=== PATIENT | female | born 1965 | race Caucasian/White ===

== ENCOUNTER 2018-06-25 18:51 | Emergency (ER) | payer OTHER ==
--- OUTSIDE RECORDS SUMMARY | 2018-06-25 19:49 | XMS REPORT ---
:1965 External Reference #:[id number] Author Organization [employer] Address [address] [facility] [place] [facility] [place] [address] Phone [phone] Care Team Providers Name Role Phone Maria Fernanda Jerome MD Primary Care Physician Unavailable Payers Type Date Identification Numbers Payment Provider Subscriber Commercial Effective: Policy Number: [employer] KelechiMildred Morris 2012 [id number] Group Number: [id number] [address] PayID: [id number] [place] [address] Medigap Part B Expires: 2012 Policy Number: Healthkristofer Slim Cortezlizbeth [id number] Group Number: [id number] [address] PayID: [id number] [place] [address] Problems Date Description Provider Status Onset: 07/09/2011 Hypothyroidism Krista Peres N.P. 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 06/25/ twice a 2017 day for 7 days Levothyroxine 07/09/ Active Tablets 125mcg 90tabs take 1 Krista Sodium 2010 tablet by Varn, N.P. mouth daily Fluconazole 02/01/ Hx Tablets 150mg 2tabs one by Krista 2016 - mouth march Varn, N.P. 02/07/ repeat in 2016 3 days as needed Lidocaine-Prilo 01/24/ Hx Cream 2.5-2.5% 25gm apply a L91.8 Krista mcfarland 2015 - generous Varn, N.P. 01/25/ amount to 2016 affected area 30 minutes before appointme nt. Ciprofloxacin 01/03/ Hx Tablets 250mg 10tabs 1 po bid 599.0 Maria Fernanda HCL 2012 - for 5 Cotton, 08/26/ days M.D. 2013 Ciprofloxacin 12/19/ Hx Tablets 250mg 6tabs one po 599.0 Milena HCL 2011 - bid for 3 Jazz, 12/22/ days M.D., FACP 2011 Omeprazole 11/13/ Hx Capsules 20mg 90caps 1 po qd 530.81 Milena 2010 - DR Schulz, 06/18/ M.D., FACP 2011 Synthroid 08/18/ Hx Tablets 125mcg 90tabs 1 po Milena 2009 - daily Jazz, 07/09/ M.D., FACP 2010 [place] 10/16/ Hx Tablets 5-325mg 30tabs 1-2 PO Deric Pleitez 2007 - Q4H prn Aldo, 11/13/ M.D. 2010 Immunizations CPT Code Status Date Vaccine Reaction Lot # [id number] Given 12/25/2017 Influenza Virus Vaccine, Quadrivalent, Split, Preservative Free 15988 Given 01/30/2017 Tetanus And Diptheria (Td) no immediate reaction [id number] For Adult Use Preservative noted ,,,, [place] Free 82473 Given 11/30/2016 Influenza Virus Vaccine, no immediate reaction [id number] Quadrivalent, Split Virus, noted ... [place] [address] Given 08/29/2015 Influenza Virus Vaccine, Quadrivalent, Split, Preservative Free 16699 Given 12/02/2014 Flu Vaccine Split Virus Preservative Free For Indiv 3Yr Older 81906 Given 09/17/2013 Flu Vaccine Split Virus [id number] Preservative Free For Indiv 3Yr Older Q2037 Given 11/11/2012 Fluvirin Im 3Yrs And Older [id number] 45102 Given 11/13/2011 Influenza Virus 3Yrs & Over [id number] 48598 Given 11/10/2009 Influenza Virus Vaccine, Pandemic Formulation 86577 Given 11/10/2009 Influenza Virus 3Yrs & Over 10462 Given 11/10/2009 Administration Swine Flu Shot 09585 Given 10/30/2008 Influenza Virus 3Yrs & Over 33773 Given 10/30/2008 Influenza Virus 3Yrs & Over 40210 Given 01/15/2007 Tdap - Tetanus/Diptheria/Acellular Pertussis 57640 Given 01/15/2007 Influenza Virus 3Yrs & Over 36136 Given 01/15/2007 Influenza Virus 3Yrs & Over Vital Signs Date Vital Result Comment 06/18/2018 Height 61.75 inches 5'1.75" Weight 172.00 lb Heart Rate 78 /min BP Systolic 130 mmHg BP Diastolic 78 mmHg Body Temperature 97.6 F O2 % BldC Oximetry 98 % BMI (Body Mass Index) 31.7 kg/m2 Waist Circumference 37 01/30/2017 Height 61.5 inches 5'1.50" Weight 173.00 lb Heart Rate 113 /min BP Systolic 140 mmHg BP Diastolic 80 mmHg O2 % BldC Oximetry 97 % BMI (Body Mass Index) 32.2 kg/m2 12/15/2016 Weight 171.00 lb Heart Rate 98 /min BP Systolic Sitting 126 mmHg BP Diastolic Sitting 74 mmHg Respiratory Rate 15 /min Body Temperature 98.9 F O2 % BldC Oximetry 98 % 11/30/2016 Height 61.25 inches 5'1.25" Weight 171.00 lb Heart Rate 83 /min BP Systolic 128 mmHg BP Diastolic 72 mmHg BP Systolic Recheck 130 mmHg BP Diastolic Recheck 82 mmHg O2 % BldC Oximetry 98 % BMI (Body Mass Index) 32.0 kg/m2 02/01/2016 Weight 173.00 lb Heart Rate 99 /min BP Systolic Sitting 132 mmHg BP Diastolic Sitting 76 mmHg O2 % BldC Oximetry 96 % 01/25/2016 Height 61.5 inches 5'1.50" Weight 173.00 lb Heart Rate 98 /min BP Systolic Sitting 124 mmHg BP Diastolic Sitting 76 mmHg Respiratory Rate 15 /min Body Temperature 98.4 F O2 % BldC Oximetry 98 % BMI (Body Mass Index) 32.2 kg/m2 08/26/2014 Height 62 inches 5'2" Weight 164.00 lb Heart Rate 98 /min BP Systolic Sitting 106 mmHg BP Diastolic Sitting 80 mmHg BMI (Body Mass Index) 30.0 kg/m2 01/03/2013 Height 61.5 inches 5'1.50" Weight 164.00 lb Heart Rate 82 /min BP Systolic Sitting 120 mmHg BP Diastolic Sitting 74 mmHg Body Temperature 98.6 F BMI (Body Mass Index) 30.5 kg/m2 06/28/2012 Height 61.5 inches 5'1.50" Weight 161.25 lb Heart Rate 80 /min BP Systolic Sitting 106 mmHg BP Diastolic Sitting 78 mmHg BMI (Body Mass Index) 30.0 kg/m2 06/18/2012 Height 61.5 inches 5'1.50" Weight 161.25 lb Heart Rate 84 /min BP Systolic Sitting 108 mmHg BP Diastolic Sitting 70 mmHg BMI (Body Mass Index) 30.0 kg/m2 12/19/2011 Height 61.75 inches 5'1.75" Weight 164.00 lb Heart Rate 82 /min BP Systolic Sitting 122 mmHg BP Diastolic Sitting 68 mmHg BMI (Body Mass Index) 30.2 kg/m2 11/13/2011 Height 61.75 inches 5'1.75" Weight 166.00 lb Heart Rate 88 /min BP Systolic Sitting 116 mmHg l BP Diastolic Sitting 78 mmHg l BMI (Body Mass Index) 30.6 kg/m2 Results Test Date Test Result H/L Range Note Ua Routine 06/18/2018 Ua Specific [place] 1000 Ua PH 7 Ua Color yellow Ua Appera clear Ua WBC positive Ua Protein negative Ua Glucose negative Ua Ketones negative Ua Bilirubin negative Ua Urobilinogen negative Ua Nitrite positive Ua Occult Blood trace Lipid Profile (Trig/Chol/HDL) 06/14/2018 Triglycerides 115 mg/dL 1 Cholesterol 199 mg/dL 2 HDL Cholesterol 61.5 mg/dL 3 LDL Cholesterol 115 mg/dL 4 Comp Metabolic Panel 06/14/2018 Sodium 137 mmol/L 135-145 Potassium 4.2 mmol/L 3.5-5.0 Chloride 102 mmol/L 101-111 Co2 Carbon Dioxide 28 mmol/L 22-32 Anion Gap 7 mmol/L 2-11 Glucose 94 mg/dL 70-100 Blood Urea Nitrogen 12 mg/dL 6-24 Creatinine 0.78 mg/dL 0.51-0.95 BUN/Creatinine Ratio 15.4 8-20 Calcium 9.3 mg/dL 8.6-10.3 Total Protein 7.3 g/dL 6.4-8.9 Albumin 3.9 g/dL 3.2-5.2 Globulin 3.4 g/dL 2-4 Albumin/Globulin Ratio 1.1 1-3 Total Bilirubin 0.50 mg/dL 0.2-1.0 Alkaline Phosphatase 312 U/L High 34-104 Alt 46 U/L 7-52 Ast 36 U/L 13-39 Egfr Non- 77.0 >60 Egfr 93.1 >60 5 Laboratory test finding 06/14/2018 TSH (Thyroid Stim 1.84 mcIU/mL 0.34- 5.60 6 Horm) Hepatitis Acute Panel 06/14/2018 Hepatitis B Surface Nonreactive Nonreactive Antigen Hepatitis B Core IgM Nonreactive Nonreactive Hepatitis A AB IgM Nonreactive Nonreactive Hepatitis C Antibody Nonreactive Nonreactive Laboratory test finding 01/30/2017 Cytology SEE RESULT BELOW 7 HPV Rna Ww/Reflex Genotype Negative Negative 8 Comp Metabolic Panel 12/13/2016 Sodium 136 mmol/L 133-145 Potassium 4.3 mmol/L 3.5-5.0 Chloride 104 mmol/L 101-111 Co2 Carbon Dioxide 26 mmol/L 22-32 Anion Gap 6 mmol/L 2-11 Glucose 94 mg/dL 70-100 Blood Urea Nitrogen 12 mg/dL 6-24 Creatinine 0.84 mg/dL 0.51-0.95 BUN/Creatinine Ratio 14.3 8-20 Calcium 9.0 mg/dL 8.6-10.3 Total Protein 6.8 g/dL 6.4-8.9 Albumin 4.0 g/dL 3.2-5.2 Globulin 2.8 g/dL 2-4 Albumin/Globulin Ratio 1.4 1-3 Total Bilirubin 0.40 mg/dL 0.2-1.0 Alkaline Phosphatase 147 U/L High 34-104 Alt 25 U/L 7-52 Ast 21 U/L 13-39 Egfr Non- 71.2 >60 Egfr 91.6 >60 9 Lipid Profile (Trig/Chol/HDL) 12/13/2016 Triglycerides 108 mg/dL 10 Cholesterol 188 mg/dL 11 HDL Cholesterol 50.6 mg/dL 12 LDL Cholesterol 116 mg/dL 13 Laboratory test 12/13/2016 TSH (Thyroid Stim Horm) 1.28 mcIU/mL 0.34- 5.60 14 finding Laboratory test 02/01/2016 Surgical Pathology SEE RESULT BELOW 15 finding Lipid Profile 01/24/2016 Triglycerides 80 mg/dL 16 (Trig/Chol/HDL) Cholesterol 201 mg/dL 17 HDL Cholesterol 51.8 mg/dL 18 LDL Cholesterol 133 mg/dL 19 Comp Metabolic Panel 01/24/2016 Sodium 137 mmol/L 133-145 Potassium 3.8 mmol/L 3.5-5.0 Chloride 103 mmol/L 101-111 Co2 Carbon Dioxide 27 mmol/L 22-32 Anion Gap 7 mmol/L 2-11 Glucose 96 mg/dL 70-100 Blood Urea Nitrogen 14 mg/dL 6-24 Creatinine 0.87 mg/dL 0.51-0.95 BUN/Creatinine Ratio 16.1 8-20 Calcium 9.0 mg/dL 8.6-10.3 Total Protein 7.0 g/dL 6.4-8.9 Albumin 4.1 g/dL 3.2-5.2 Globulin 2.9 g/dL 2-4 Albumin/Globulin Ratio 1.4 1-3 Total Bilirubin 0.40 mg/dL 0.2-1.0 Alkaline Phosphatase 128 U/L High 34-104 Alt 23 U/L 7-52 Ast 22 U/L 13-39 Egfr Non- 68.6 >60 Egfr 88.3 >60 20 Laboratory test 01/24/2016 TSH (Thyroid Stim Horm) 1.79 ?IU/mL 0.34-5.60 finding Laboratory test 08/18/2014 TSH (Thyroid 5.60 IU/mL 0.34-5.60 21, 22 finding Stimulating Horm) Lipid Profile 08/18/2014 Triglycerides 94 mg/dL 21, 23 (Trig/Chol/HDL) Cholesterol 198 mg/dL 21, 24 HDL Cholesterol 48.3 mg/dL 21, 25 LDL Cholesterol 131 mg/dL 21, 26 Laboratory test finding 08/18/2014 Glucose 92 mg/dL 70-100 21, 27 Urine Culture And 01/03/2013 Urine Culture (SEE NOTE) 28 Sensitivities Ua Routine 01/03/2013 Ua Specific [place] 1.005 Ua PH 5 Ua Color yellow Ua Appera cloudy Ua WBC small Ua Protein neg Ua Glucose neg Ua Ketones positive Ua Bilirubin neg Ua Urobilinogen neg Ua Nitrite neg Ua Occult Blood non hemo trace Comp Metabolic Panel 07/05/2012 Sodium 137 mmol/L 135-145 Potassium 4.1 mmol/L 3.5-5.0 Chloride 103 mmol/L 101-111 Co2 (Carbon Dioxide) 27.0 mmol/L 22-32 Anion Gap 7.0 mmol/L 2-11 29 Glucose 94 mg/dL 70-100 BUN 10 mg/dL 6-24 Creatinine 0.8 mg/dL 0.50-1.40 One Over Creatinine 1.25 BUN/Creatinine Ratio 12.5 8-20 Calcium 9.4 mg/dL 8.1-9.9 Total Protein 7.1 GM/DL 6.2-8.1 Albumin 4.1 GM/DL 3.6-5.4 Globulin 3.0 GM/DL 2-4 Albumin/Globulin Ratio 1.4 1-3 Bilirubin Total 0.6 mg/dL 0.4-1.5 30 Alkaline Phosphatase 80 U/L 30-110 Alt (SGPT) 21 U/L 14-54 Ast (Sgot) 22 U/L 12-42 eGFR Non- 76.6 > 60 eGFR 98.5 > 60 31 Lipid Profile (Trig/Chol/HDL) 07/05/2012 Triglyceride 113 mg/dL 40-200 Cholesterol 221 mg/dL High Less Than 200 32 High Density Lipoprotein 51 mg/dL 40-60 33 Cholesterol/HDL Ratio 4.33 AVERAGE 1-4.44 Low Density Lipoprotein 147 mg/dL High Less Than 100 34 Laboratory test 07/05/2012 TSH 0.63 MIU/ML 0.34-5.60 finding Laboratory test 06/28/2012 Surgical Pathology 35 finding <SEE NOTE> Laboratory test 06/18/2012 Cytology 36 finding <SEE NOTE> Laboratory test 06/03/2012 TSH 3.94 MIU/ML 0.34-5.60 finding Thyroxine Free 1.12 ng/dL 0.61-1.24 Surgical Pathology 01/10/2012 Surgical Pathology <SEE 37 NOTE> Clotest 01/10/2012 M <SEE 38 NOTE> Urine Culture & 12/19/2011 M <SEE 39 Sensitivi NOTE> Comp Metabolic 11/28/2011 Sodium 136 mmol/L 135-145 Panel Potassium 4.1 mmol/L 3.5-5.0 Chloride 103 mmol/L 101-111 Co2 (Carbon Dioxide) 27.0 mmol/L 22-32 Anion Gap 6.0 mmol/L 2-11 40 Glucose 90 mg/dL 70-100 BUN 9 mg/dL 6-24 Creatinine 0.8 mg/dL 0.50-1.40 One Over Creatinine 1.25 BUN/Creatinine Ratio 11.3 8-20 Calcium 9.2 mg/dL 8.1-9.9 Total Protein 6.5 GM/DL 6.2-8.1 Albumin 4.1 GM/DL 3.6-5.4 Globulin 2.4 GM/DL 2-4 Albumin/Globulin Ratio 1.7 1-3 Bilirubin Total 0.5 mg/dL 0.4-1.5 41 Alkaline Phosphatase 90 U/L 30-110 Alt (SGPT) 31 U/L 14-54 Ast (Sgot) 26 U/L 12-42 eGFR Non- 76.9 > 60 eGFR 98.9 > 60 42 Lipid Profile (Trig/Chol/HDL) 11/28/2011 Triglyceride 114 mg/dL 40-200 Cholesterol 215 mg/dL High Less Than 200 43 High Density Lipoprotein 49 mg/dL 40-60 44 Cholesterol/HDL Ratio 4.39 AVERAGE 1-4.44 Low Density Lipoprotein 143 mg/dL High Less Than 100 45 Laboratory test finding 11/28/2011 TSH 6.08 MIU/ML High 0.34-5.60 CBC Auto Diff 11/28/2011 White Blood Count 5.6 CUMM 4.8-10.8 Red Cell Count 4.49 CUMM 4.2-5.4 Hemoglobin 13.5 g/dL 12.0-16.0 Hematocrit 40 % 35-47 Mean Corpuscular Volume 90 um3 79-97 Mean Corpuscular Hemoglob 30 pg 27-31 Mean Corpuscular HGB Cone 34 g/dL 32-36 Redcell Distribution WDTH 14 % 10.5-15 Platelet Count 290 CUMM 150-450 Mean Platelet Volume 7.9 um3 7.4-10.4 Gran % 55.5 % 38-83 Lymph % 31.6 % 25-47 Mononuclear % 9.3 % High 1-9 Eosinophil % 3.0 % 0-6 Basophil % 0.6 % 0-2 Abs Lymphs 1.8 1.0-4.8 Abs Mononuclear 0.5 0-0.8 Absolute Neutrophil Count 3.1 1.5-7.7 Abs Eosinophils 0.2 0-0.6 Abs Basophils 0 0-0.2 Comp Metabolic Panel 09/17/2008 Sodium 138 mmol/L 135-145 46 Potassium 4.0 mmol/L 3.5-5.0 46 Chloride 106 mmol/L 101-111 46 Co2 (Carbon Dioxide) 27.0 mmol/L 22-32 46 Anion Gap 5.0 mmol/L 2-11 46, 47 Glucose 96 mg/dL 70-100 46, 48 BUN 15 mg/dL 6-24 46 Creatinine 0.9 mg/dL 0.5-1.4 46 One Over Creatinine 1.11 46 BUN/Creatinine Ratio 16.7 8-20 46 Calcium 9.1 mg/dL 8.1-9.9 46, 49 Total Protein 6.9 GM/DL 6.2-8.1 46 Albumin 4.0 GM/DL 3.6-5.4 46 Globulin 2.9 GM/DL 2-4 46 Albumin/Globulin Ratio 1.4 1-3 46 Bilirubin Total 0.5 mg/dL 0.4-1.5 46 Alkaline Phosphatase 53 U/L 30-110 46 Alt (SGPT) 17 U/L 14-54 46 Ast (Sgot) 18 U/L 12-42 46 Lipid Profile (Trig/Chol/HDL) 09/17/2008 Triglyceride 190 mg/dL 40-200 46 Cholesterol 194 mg/dL Less Than 200 46, 50 High Density Lipoprotein 36 mg/dL Low 40-60 46, 51 Cholesterol/HDL Ratio 5.39 AVERAGE High 1-4.44 46 Low Density Lipoprotein 120 mg/dL High Less Than 100 46, 52 Laboratory test 09/17/2008 TSH 2.00 MIU/ML 0.34-5.60 46 finding Surgical Pathology 09/26/2007 Surgical Pathology 53 <SEE NOTE> CBC W/ Electronic Diff 09/24/2007 White Blood Count 6.8 CUMM 4.8-10.8 54 Abs Basophils 0 0-0.2 54 Abs Eosinophils 0 0-0.6 54 Absolute Neutrophil Count 4.6 1.5-7.7 54 Abs Lymphs 1.7 1.0-4.8 54 Abs Mononuclear 0.4 0-0.8 54 Basophil % 0.5 % 0-2 54 Hematocrit 42 % 35-47 54 Hemoglobin 14.3 g/dL 12.0-16.0 54 Eosinophil % 0.4 % 0-6 54 Gran % 68.0 % 38-83 54 Lymph % 24.5 % 20-45 54 Mean Corpuscular HGB Cone 34 g/dL 32-36 54 Mean Corpuscular Hemoglob 31 pg 27-31 54 Mean Corpuscular Volume 90 um3 79-97 54 Mean Platelet Volume 7.8 um3 7.4-10.4 54 Mononuclear % 6.6 % 1-9 54 Platelet Count 321 CUMM 150-450 54 Red Cell Count 4.66 CUMM 4.2-5.4 54 Redcell Distribution WDTH 14 % 10.5-15 54 Basic Metabolic Panel 09/24/2007 One Over Creatinine 1.00 54 Anion Gap 8.0 mmol/L 2-11 54, 55 BUN 14 mg/dL 6-24 54 Calcium 9.3 mg/dL 8.7-10.2 54 Chloride 103 mmol/L 101-111 54 Co2 (Carbon Dioxide) 28.0 mmol/L 22-32 54 Glucose 102 mg/dL 70-105 54 Potassium 3.9 mmol/L 3.5-5.0 54 Sodium 139 mmol/L 135-145 54 BUN/Creatinine Ratio 14.0 8-20 54 Creatinine 1.0 mg/dL 0.5-1.4 54 Type And Screen 09/24/2007 Patient Blood Type A POSITIVE Antibody Screen NEGATIVE Specimen Discard Date 10/08/07 56 CBC With Manual Diff 01/19/2007 White Blood Count 4.8 CUMM 4.8-10.8 Absolute Neutrophil Count 3.1 Atypical Lymph 3 % 0-6 Anisocytosis SLIGHT Band Neutrophil 1 % 0-8 Hematocrit 40 % 35-47 Hemoglobin 13.8 g/dL 12.0-16.0 Lymphocyte 29 % 5-47 Mean Corpuscular HGB Cone 35 g/dL 32-36 Mean Corpuscular Hemoglob 30 pg 27-31 Mean Corpuscular Volume 88 um3 79-97 Monocyte 3 % 0-13 Mean Platelet Volume 8.3 um3 7.4-10.4 Platelet Count 284 CUMM 150-450 Polysegmented Neutrophil 64 % 38-83 Red Cell Count 4.56 CUMM 4.2-5.4 Redcell Distribution WDTH 15 % 10.5-15 Comp Metabolic Panel 01/19/2007 One Over Creatinine 1.25 Anion Gap 6.0 mmol/L 2-11 57 Albumin/Globulin Ratio 1.6 1-3 Albumin 4.1 GM/DL 3.6-5.4 Alkaline Phosphatase 64 U/L 30-110 Alt (SGPT) 19 U/L 14-54 Ast (Sgot) 21 U/L 12-42 BUN 10 mg/dL 6-24 Calcium 8.9 mg/dL 8.7-10.2 Chloride 102 mmol/L 101-111 Co2 (Carbon Dioxide) 27.0 mmol/L 22-32 Globulin 2.6 GM/DL 2-4 Glucose 94 mg/dL 70-105 Potassium 3.9 mmol/L 3.5-5.0 Sodium 135 mmol/L 135-145 Bilirubin Total 0.7 mg/dL 0.4-1.5 Total Protein 6.7 GM/DL 6.2-8.1 BUN/Creatinine Ratio 12.5 8-20 Creatinine 0.8 mg/dL 0.5-1.4 Lipid Profile 01/19/2007 Cholesterol/HDL Ratio 5.13 AVERAGE High 1-4.44 (Trig/Chol/HDL) Cholesterol 195 mg/dL Less Than 200 58 Triglyceride 84 mg/dL 40-200 High Density Lipoprotein 38 mg/dL Low 40-60 59 Low Density Lipoprotein 140 mg/dL High Less Than 100 60 Laboratory test finding 01/19/2007 TSH 0.30 MIU/ML Low 0.34-5.60 1 Desirable: <150 Borderline High: 150-199 High: 200-499 Very High: >500 2 Desirable: <200 Borderline High: 200-239 High: >239 3 Low: <40 Desirable: 40-60 High: >60 4 Desirable: <100 Near Optimal: 100-129 Borderline High: 130-159 High: 160-189 Very High: >189 5 Because ethnic data is not always readily available, this report includes an eGFR for both -Americans and non- Americans. The National Kidney Disease Education Program (NKDEP) does not endorse the use of the MDRD equation for patients that are not between the ages of 18 and 70, are , have extremes of body size, muscle mass, or nutritional status, or are non- or non-. According to the National Kidney Foundation, irrespective of diagnosis, the stage of the disease is based on the level of kidney function: Stage Description GFR(mL/min/1.73 m(2)) 1 Kidney damage with normal or decreased GFR 90 2 Kidney damage with mild decrease in GFR 60-89 3 Moderate decrease in GFR 30-59 4 Severe decrease in GFR 15-29 5 Kidney failure <15 (or dialysis) 6 FASTING 10 HOUR 7 SEE RESULT BELOW Name: AUDRA MORRIS : [address]: Krista Peres NP Acct: [id number] Unit: [id number] AGE: 51 Location: [facility] Re01/30/17 SEX: F Status: REG REF SPEC: [id number] [place]: 01/30/17-[address]: Krista Peres NP REQ: [id number] RECD: 01/30/17019 STATUS: SOUT _ ORDERED: IMAGE ANALYSIS, HPV/Thin Prep, HPV 16/18 GENE COMMENTS: [id number] FINAL DIAGNOSIS Negative for Intraepithelial lesion or Malignancy Fungal organisms morphologically consistent with Nora species A. Ectocervical/Endocervical Specimen Adequacy: Satisfactory of evaluation Transformation zone component identified Patient Information: HPV: High risk HPV RNA testing regardless of pap results. HPV 16/18 Genotype Reflex Actual Specimen Date: 01/30/17 Last Menstrual Date: 01/30/17 Spec Date if unknown: unknown ?: N Post Menopausal?: N Hysterectomy?: N Previous Abnormal Pap Smears?:N Date Time Test Result Flag (u) Normal Range 01/30/17 1035 HPV RNA RFLX GE Negative Negative The high-risk HPV types detected by the assay include: 16, 18, 31, 33, 35, 39, 45, 51, 52, 56, 58, 59, 66, and 68. Signed (signature on file) SUSHILA Estrada (ASCP) 01/31 1303 This Pap test was evaluated with the assistance of the [employer] Test Imaging System. Due to cytologic findings at the corrugator operator microscope, comprehensive manual rescreening by a Director Of Planning may be required. The Pap Smear is a screening test designed to aid in the detection of premalignant and malignant conditions of the uterine cervix. It is not a diagnostic procedure and should not be used as the sole means of detecting cervical cancer. Both false- positive and false- negative reports do occur. Depending on your risk status, a Pap smear should be obtained and evaluated every 1-3 years. END OF REPORT * ML=Testing performed at Main Lab DEPARTMENT OF PATHOLOGY, [address] [place] [address] RUN DATE: 01/31/17 [facility] LAB LIVE PAGE 1 Patient: CHRISAUDRA MUÑOZ Edson [id number] (Continued) Mark Puckett M.D. Director [facility] # [id number] The high-risk HPV types detected by the assay include: 16, 18, 31, 33, 35, 39, 45, 51, 52, 56, 58, 59, 66, and 68. 9 Because ethnic data is not always readily available, this report includes an eGFR for both -Americans and non- Americans. The National Kidney Disease Education Program (NKDEP) does not endorse the use of the MDRD equation for patients that are not between the ages of 18 and 70, are , have extremes of body size, muscle mass, or nutritional status, or are non- or non-. According to the National Kidney Foundation, irrespective of diagnosis, the stage of the disease is based on the level of kidney function: Stage Description GFR(mL/min/1.73 m(2)) 1 Kidney damage with normal or decreased GFR 90 2 Kidney damage with mild decrease in GFR 60-89 3 Moderate decrease in GFR 30-59 4 Severe decrease in GFR 15-29 5 Kidney failure <15 (or dialysis) 10 Desirable <150 Borderline high 150-199 High 200-499 Very High >500 11 Desirable <200 Borderline high 200-239 High >239 12 Low <40 Desirable: 40-60 High: >60 13 Desirable: <100 mg/dL Near Optimal: 100-129 mg/dL Borderline High: 130-159 mg/dL High: 160-189 mg/dL Very High: >189 mg/dL 14 FASTING 10 HOUR 15 SEE RESULT BELOW Name: AUDRA MORRIS Edson : [address]: Krista Peres NP Acct: [id number] Unit: [id number] AGE: 50 Location: [facility] Re02/01/16 SEX: F Status: REG REF SPEC: [id number] [place]: 02/01/16-14[address] [facility] DR: Krista Peres NP REQ: [id number] RECD: 02/01/16 STATUS: SOUT _ ORDERED: LEVEL IV FINAL DIAGNOSIS Skin, back, excision: -- Benign dermal nevus, neurotized. PRE-OPERATIVE DIAGNOSIS Irritated skin tag GROSS DESCRIPTION The specimen is received in formalin with no source identified and a requisition labeled, Skin Lesion of Back, and consists of a 0.5 x 0.5 x 0.3 cm gamboa wrinkled polypoid skin fragment, which is inked, bisected and submitted entirely in one cassette. Signed (signature on file) Mark Puckett MD [id number] END OF REPORT * ML=Testing performed at Main Lab DEPARTMENT OF PATHOLOGY, [address] [place] [address] Mark Puckett M.D. Director [facility] # [id number] 16 Desirable <150 Borderline high 150-199 High 200-499 Very High >500 17 Desirable <200 Borderline high 200-239 High >239 18 Low <40 Desirable: 40-60 High: >60 19 Desirable: <100 mg/dL Near Optimal: 100-129 mg/dL Borderline High: 130-159 mg/dL High: 160-189 mg/dL Very High: >189 mg/dL 20 Because ethnic data is not always readily available, this report includes an eGFR for both -Americans and non- Americans. The National Kidney Disease Education Program (NKDEP) does not endorse the use of the MDRD equation for patients that are not between the ages of 18 and 70, are , have extremes of body size, muscle mass, or nutritional status, or are non- or non-. According to the National Kidney Foundation, irrespective of diagnosis, the stage of the disease is based on the level of kidney function: Stage Description GFR(mL/min/1.73 m(2)) 1 Kidney damage with normal or decreased GFR 90 2 Kidney damage with mild decrease in GFR 60-89 3 Moderate decrease in GFR 30-59 4 Severe decrease in GFR 15-29 5 Kidney failure <15 (or dialysis) 21 PT IS FASTING 22 PT IS FASTING 23 Desirable <150 Borderline high 150-199 High 200-499 Very High >500 24 Desirable <200 Borderline high 200-239 High >239 25 Low <40 Desirable: 40-60 High: >60 26 Desirable <100 Near Optimal 100-129 Borderline high 130-159 High 160-189 Very High >189 27 PT IS FASTING 28 RUN DATE: 01/05/13 [facility] LAB LIVE PAGE 1 RUN TIME: [address] [place] [id number] Specimen Inquiry Name: AUDRA MORRIS : [address]: Maria Fernanda Jerome MD Acct: [id number] Unit: [id number] AGE: 47 Location: [facility] Re01/03/13 SEX: F Status: REG REF SPEC: [id number] [place]: 01/03/13-[address]: Maria Fernanda Jerome MD REQ: [id number] RECD: 01/03/13 STATUS: COMP _ SOURCE: URINE SPDESC: ORDERED: Urine Culture QUERIES: Medent Number [id number] Procedure Result Verified Site Urine Culture Final 01/05/13- 0843 ML Organism 1 ESCHERICHIA COLI [place] Count >100,000 (Many) CFU/ML 1. ESCHERICHIA COLI M.I.C. RX --------- ------ Amikacin <=2 S Ampicillin 4 S * Ampicillin/Sublactam 4 S Cefazolin <=4 S Cefepime <=1 S Cefoxitin <=4 S Ceftazidime <=1 S Ceftriaxone <=1 S Ciprofloxacin <=0.25 S Gentamicin <=1 S Imipenem <=1 S Levofloxacin <=0.12 S Nitrofurantoin <=16 S Piperacillin <=4 S Tigecycline <=0.5 S Trimethoprim/Sulfamethoxazole <=20 S * These antibiotics are not available in the [facility] Formulary Contact the Microbiology Department for any additional antibiotic reporting. END OF REPORT * ML=Testing performed at Main Lab DEPARTMENT OF PATHOLOGY, [address] [place] [address] Mark Puckett M.D. Director [facility] Permit #[id number] 29 Anion gap measurement may be of limited value in the presence of any alkalosis, especially in a combined acid base disorder. . 30 A metabolite of Naproxen, O-desmethylnaproxen, has been shown to interfere with the Jendrassik-Jaxon method for measuring total bilirubin. Samples from patients who have taken Naproxen have shown spurious elevation in total bilirubin levels. 31 Because ethnic data is not always readily available, this report includes an eGFR for both -Americans and non- Americans. The National Kidney Disease Education Program (NKDEP) does not endorse the use of the MDRD equation for patients that are not between the ages of 18 and 70, are , have extremes of body size, muscle mass, or nutritional status, or are non- or non-. According to the National Kidney Foundation, irrespective of diagnosis, the stage of the disease is based on the level of kidney function: Stage Description GFR(mL/min/1.73 m(2)) 1 Kidney damage with normal or decreased GFR 90 2 Kidney damage with mild decrease in GFR 60-89 3 Moderate decrease in GFR 30-59 4 Severe decrease in GFR 15-29 5 Kidney failure <15 (or dialysis) 32 CHOLESTEROL INTERPRETATION: Desirable: Less than 200 MG/DL Borderline-High Risk: 200-239 MG/DL High-Risk: 240 MG/DL and over 33 HDL INTERPRETATION: Undesirable: High Risk: Less than 40 MG/DL Desirable: Low Risk: Greater than 60 MG/DL 34 LDL INTERPRETATION: Low Risk Optimal Level: LDL Less than 100 MG/DL Near or Above Optimal: LDL 100-129 MG/DL Borderline High Risk: LDL 130-159 MG/DL High Risk: LDL 160-189 MG/DL Very High Risk: LDL Greater than 189 MG/DL 35 ---- RUN DATE: 07/02/12 [facility] NMI LIVE PAGE 1 RUN TIME: 151 Specimen Inquiry RUN USER: INTERFACE -- Name: AUDRA MORRIS Edson Status: REG REF Re06/28/12 Age/Sex: 47/F Unit#: [id number] Location: [facility] : 63 -- Specimen: [id number] SOUT Spec Date:06/28/12 [facility] Dr: Krista Peres [facility] Spec Type: SURGICAL P Received:07/01/12-1252 Copies to: CYTOLOGY SPECIMEN ENDOMETRIAL BIOPSY HISTORY PRE-OP DIAGNOSIS: Irregular menstrual bleeding. GROSS DESCRIPTION The specimen is received in formalin labelled Audra Morris, Endometrial Biopsy, and consists of multiple gamboa-pink, soft tissue fragments measuring 1.7 x 1.0 x 0.3 cm. in aggregate. Submitted entirely, one cassette. DIAGNOSIS Uterus, endometrium, pipelle biopsy: A. Secretory endometrium. B. No evidence of hyperplasia or neoplasia. Signed Electronically by: MARK PUCKETT MD 07/02/12 1512 -- -- DEPARTMENT OF PATHOLOGY, [address] [place] [address] [facility] Permit #[id number] Irena Cox M.D. Lining Strap Closer Dir netta -- 36 ---- RUN DATE: 06/19/12 [facility] NMI LIVE PAGE 1 RUN TIME: 1609 Specimen Inquiry RUN USER: INTERFACE -- Name: AUDRA MORRIS Status: REG REF Re06/18/12 Age/Sex: 47/F Unit#: [id number] Location: [facility] : 63 -- Specimen: [id number] [facility] Spec Date:06/18/12-[address]: Krista Peres [facility] Spec Type: CYTOLOGY Received:06/19/12 Copies to: SOURCE ECTOCERVICAL/ENDOCERVICAL Thin Prep with Reflex HPV Test PATIENT INFORMATION ACTUAL COLLECTION DATE: 06/18/12 ? No POST MENOPAUSAL? No HYSTERECTOMY? No PREVIOUS ABNORMAL PAP SMEARS No LAST MENSTRUAL PERIOD: 06/10/12 ADEQUACY OF SPECIMEN Satisfactory for evaluation * Transformation zone component identified * DIAGNOSIS NEGATIVE FOR INTRAEPITHELIAL LESION OR MALIGNANCY * Fungal organisms morphologically consistent with Nora species * This Pap test was evaluated with the assistance of the ThinPrep Pap Test Imaging System. The Pap Smear is a screening test designed to aid in the detection of premalign ant and malignant conditions of the uterine cervix. It is not a diagnostic procedure a nd should not be used as the sole means of detecting cervical cancer. Both false- positiv e and false-negative reports do occur. Depending on your risk status, a Pap smear david uld be obtained and evaluated every one to three years. Initial evaluation performed by Edson ALVARENGA(ASCP) 06/19/12 Final Interpretation electronically signed by: Edson ALVARENGA(ASCP) 06/19/12 1608 -- DEPARTMENT OF PATHOLOGY, [address] [place] [address] [facility] Permit #[id number] Irena Cox M.D. Lining Strap Closer Dir netta -- 37 ---- RUN DATE: 01/12/12 [facility] NMI LIVE PAGE 1 RUN TIME: 1154 Specimen Inquiry RUN USER: INTERFACE -- Name: AUDRA MORRIS Status: REG REF Re01/10/12 Age/Sex: 46/F Unit#: [id number] Location: [facility]. : 63 -- Specimen: [id number] SOUT Spec Date: 01/10/[address]: Mauricio corona MD Spec Type: SURGICAL P Received: 01/11/12 Copies to: Krista Peres [facility] SPECIMEN 1) DUODENAL BIOPSY 2) GASTRIC POLYP HISTORY POST-OP DIAGNOSIS: Stomach - small fundal polyp, hiatal hernia. CLINICAL INFORMATION: Abdominal pain, dysphagia. GROSS DESCRIPTION 1) The specimen is received in formalin labelled Audra Morris, Biopsy Duodenum, and consists of three fragments of yellow tissue measuring in aggregate 0.6 x 0.6 x 0.3 cm. Submitted entirely, one cassette labelled 1. 2) The specimen is received in formalin labelled Audra Morris, Gastric Polyp, and consists of two fragments of yellow tissue each measuring 0.2 x 0.1 x 0.1 cm. Submitted entirely, one cassette labelled 2. DIAGNOSIS 1) Duodenum, biopsy: Duodenal mucosa with preserved villous architecture and no significant pathologic changes. 2) Stomach, biopsy: Fundic gland type polyp. Signed Electronically by: JOEY MICHAELS 01/12/12 1154 -- -- DEPARTMENT OF PATHOLOGY, [address] [place] [address] [facility] Permit #[id number] Irena Cox M.D. Lining Strap Closer Dir netta -- 38 RUN DATE: 01/11/12 [facility] NMI LIVE PAGE 1 RUN TIME: 837 Specimen Inquiry RUN USER: INTERFACE Name: CHRISTONIAUDRA Acclashaun#: [id number] Status: REG REF Re01/10/12 Age/Sex: 46/F Unit#: [id number] Location: END : 63 SPEC #: [id number] [place]: 01/10/12 STATUS: [place] REQ #: [id number] RECD: 01/10/[address] [facility] [address]: Jeremy YOON,Mauricio Blackwood SOURCE: CLOTEST ENTR: 01/10/[address]: Krista Mayes [facility]: ORDERED: CLOTEST Procedure Result Verified Site > CLOTEST Final 01/11/12837 ML CLOTEST NEGATIVE ML - [facility] Permit #[id number] [address] [place] [address] DEPARTMENT OF PATHOLOGY, [address] [place] [address] [address] [facility] Permit #[id number] Irena Cox M.D. Slot Ambassador 39 RUN DATE: 12/21/11 [facility] NMI LIVE PAGE 1 RUN TIME: 1105 Specimen Inquiry RUN USER: INTERFACE Name: AUDRA MORRIS Status: REG REF Re12/19/11 Age/Sex: 46/F Unit#: [id number] Location: [facility] : 63 SPEC #: [id number] [place]: 12/19/11 STATUS: COMP REQ #: [id number] RECD: 12/19/[address]: Ja MARREROPKrista SOURCE: URINE ENTR: 12/19/[address]: [facility]: ORDERED: URINE C S QUERIES: MEDENT REQUISITION # [id number] SPECIMEN DESCRIPTION: URINE, RANDOM ACT WKST: UR 12/21/11 #1 Procedure Result Verified Site > URINE CULTURE SENSITIVI Final 12/21/11- 1105 ML Organism 1 STAPH LUGDUNENSIS COLONY COUNT >100,000 ORGANISMS/ML (MANY) 1. STAPH LUGDUNENSIS RX M.I.C. ------ --------- RIFAMPIN S <=0.5 LEVOFLOXACIN S 0.25 TETRACYCLINE S <=1 CIPROFLOXACIN S <=0.5 GENTAMICIN S <=0.5 TIGECYCLINE S <=0.12 OXACILLIN S 0.5 NITROFURANTOIN S <=16 VANCOMYCIN S 1 +AMPICILLIN/SUBLACTAM S +IMIPENEM S +CEFAZOLIN S +These results are deduced according to CLSI guidelines as they are related to tested antimicrobials with almost identical spectrum of activity. *These antibiotics are not available in the [facility] Formulary. Contact the Microbiology Department for any additional antibiotic reporting. [facility] Permit #[id number] [address] [place] [address] DEPARTMENT OF PATHOLOGY, [address] [place] [address] [facility] Permit #[id number] Mark Puckett M.D. Director Joey Michaels M.D. Slot Ambassador 40 Anion gap measurement may be of limited value in the presence of any alkalosis, especially in a combined acid base disorder. . 41 A metabolite of Naproxen, O-desmethylnaproxen, has been shown to interfere with the Jendrassik-[place] method for measuring total bilirubin. Samples from patients who have taken Naproxen have shown spurious elevation in total bilirubin levels. 42 Because ethnic data is not always readily available, this report includes an eGFR for both -Americans and non- Americans. The National Kidney Disease Education Program (NKDEP) does not endorse the use of the MDRD equation for patients that are not between the ages of 18 and 70, are , have extremes of body size, muscle mass, or nutritional status, or are non- or non-. According to the National Kidney Foundation, irrespective of diagnosis, the stage of the disease is based on the level of kidney function: Stage Description GFR(mL/min/1.73 m(2)) 1 Kidney damage with normal or decreased GFR 90 2 Kidney damage with mild decrease in GFR 60-89 3 Moderate decrease in GFR 30-59 4 Severe decrease in GFR 15-29 5 Kidney failure <15 (or dialysis) 43 CHOLESTEROL INTERPRETATION: Desirable: Less than 200 MG/DL Borderline-High Risk: 200-239 MG/DL High-Risk: 240 MG/DL and over 44 HDL INTERPRETATION: Undesirable: High Risk: Less than 40 MG/DL Desirable: Low Risk: Greater than 60 MG/DL 45 LDL INTERPRETATION: Low Risk Optimal Level: LDL Less than 100 MG/DL Near or Above Optimal: LDL 100-129 MG/DL Borderline High Risk: LDL 130-159 MG/DL High Risk: LDL 160-189 MG/DL Very High Risk: LDL Greater than 189 MG/DL 46 FASTING 47 Anion gap measurement may be of limited value in the presence of any alkalosis, especially in a combined acid base disorder. . 48 Note change in reference range as of 07/16/08. The change was based on recommendations from the [place] [employer]. 49 Please note change in reference range effective 08 . 50 CHOLESTEROL INTERPRETATION: Desirable: Less than 200 MG/DL Borderline-High Risk: 200-239 MG/DL High-Risk: 240 MG/DL and over 51 HDL INTERPRETATION: Undesirable: High Risk: Less than 40 MG/DL Desirable: Low Risk: Greater than 60 MG/DL 52 LDL INTERPRETATION: Low Risk Optimal Level: LDL Less than 100 MG/DL Near or Above Optimal: LDL 100-129 MG/DL Borderline High Risk: LDL 130-159 MG/DL High Risk: LDL 160-189 MG/DL Very High Risk: LDL Greater than 189 MG/DL 53 ---- RUN DATE: 09/27/07 [facility] NMI LIVE PAGE 1 RUN TIME: 1555 Specimen Inquiry RUN USER: INTERFACE [id number] AUDRA MORRIS 42/F <[place] [facility] ([id number]) MELVIN Carlson MD, Debbi Pleitez -- Specimen: [id number] SOUT Spec Date: 09/26/07 [facility] Dr: Deric gallego MD Spec Type: SURGICAL P Received: 09/26/07-1242 Copies to: SPECIMEN DISC L5-S1 HISTORY PRE-OP DIAGNOSIS: Right L5-S1 sciatica due to herniated disc L5-S1 GROSS DESCRIPTION The specimen is received in formalin labelled Audra Morris, Disc L5-S1, and consists of multiple, gamboa-pink, fibrous, soft tissue fragments measuring 3.7 x 2.4 x 1.0 cm. in aggregate. Nursing Student section, one cassette. DIAGNOSIS Intervertebral disc, L5-S1, discectomy - Intervertebral disc material. Signed Electronically by: MARK PUCKETT MD 09/27/07 1554 -- -- DEPARTMENT OF PATHOLOGY, [address] [place] [address] [facility] Permit #[id number] Mark Puckett M.D. Director of Laboratories Ben Simon II, M.D . Pathologist -- 54 [facility] 09/26/07 55 Anion gap measurement may be of limited value in the presence of any alkalosis, especially in a combined acid base disorder. . 56 PREADMISSION TESTING SAMPLES FOR BLOOD BANK WILL BE HELD FOR 14 DAYS FROM THE DATE OF COLLECTION *IF* THE FOLLOWING CRITERIA ARE MET: 1) THE PATIENT HAS *NOT* BEEN IN THE LAST 3 MONTHS. 2) THE PATIENT HAS *NOT* BEEN TRANSFUSED IN THE LAST 3 MONTHS. PREADMISSION TESTING SAMPLES WILL *NOT* BE HELD FOR 14 DAYS FROM PATIENTS WHO IN THE LAST 3 MONTHS: 1) HAVE BEEN 2) HAVE BEEN TRANSFUSED THESE PATIENTS *MUST* BE COLLECTED WITHIN 3 DAYS OF THE SURGERY DATE. 57 Anion gap measurement may be of limited value in the presence of any alkalosis, especially in a combined acid base disorder. . 58 Classification: Desirable . 59 Classification: Low . 60 CALCULATED LDL APPROXIMATES THE VALUE OF A DIRECT LDL MEASUREMENT. Classification: Borderline High . Procedures Date CPT Code Description Status 04/01/2018 Mammogram Completed 01/30/2017 11591 Admin & Interp Of Health Risk Assessment w/ Patient Completed 01/12/2017 33257 Stress Test Completed 01/12/2017 54024 Stress Test Completed 12/12/2016 21919 ECHO Transthoracic, Real-Time 2D With Doppler And Color Completed Flow 11/30/2016 35124 EKG Tracing & Interpretation Completed 02/01/2016 89067 Excise Benign Lesion 2.1-3CM Trunk/Arm/Leg Completed 02/25/2015 Mammogram Completed 10/02/2013 Mammogram Completed 06/28/2012 04942 Endometrial Sampling W Or W/O Endocervical BX W Or W/O Completed Cerv Dilat 06/26/2012 Mammogram Completed 01/26/2012 Colonoscopy Completed 12/13/2011 40919 ECHO Transthoracic, Real-Time 2D With Doppler And Color Completed Flow 11/29/2011 53760 Holter Monitor Review (24 hr)dr review & interp only Completed 11/28/2011 05592 Holter Monitor Completed 11/13/2011 12693 EKG Tracing & Interpretation Completed 04/27/2011 Mammogram Completed 04/18/2010 Mammogram Completed 09/26/2007 52085 Laminotomy W/Decomp NRV RT,One Interspace,Lumbar Completed Encounters Type Date Location Provider CPT E/M Dx Office Visit 01/30/2017 [facility] Krista Peres, N.P. 54048 Z00.00 9:20a - [place] Z12.31 Z12.4 Z23 Office Visit 12/15/2016 9:40a [facility] Krista Peres, N.P. 86748 R07.9 - [place] R03.0 Office Visit 11/30/2016 8:40a [facility] Krista Peres, N.P. 63415 R07.89 - [place] R03.0 Z23 R94.31 Office Visit 01/25/2016 9:20a [facility] Krista Peres, N.P. 81762 Z00.00 - [place] Z12.31 E03.9 E78.0 L91.8 Office Visit 08/26/2014 9:20a [facility] Krista Peres, N.P. 71514 V70.0 - [place] V76.10 244.9 272.4 Office Visit 01/03/2013 11:20a [facility] Maria Fernanda Justus 40869 599.0 - [place] M.D. Office Visit 06/18/2012 10:00a [facility] Krsita Peres, N.P. 53132 V70.0 - [place] V72.31 V76.10 244.9 256.4 626.6 Office Visit 12/19/2011 10:00a [facility] Krista Peres, N.P. 34634 530.81 - [place] 573.9 599.0 Office Visit 12/13/2011 1:15p [facility] ECHO 95624 786.59 Schedule Office Visit 11/13/2011 11:40a DO Not Use Krista Peres, N.P. 03958 786.59 [facility] 530.81 v04.81 v72.60 Office Visit 03/30/2010 1:30p DO Not Use [facility] Krista Peres, 61800 V70.0 N.P. Office Visit 10/30/2008 3:45p DO Not Use [facility] Milena Schulz M.D., 86420 244.9 FACP 780.79 V04.81 Office Visit 10/16/2008 9:00a [facility] Deric Carlson, 05908 724.3 Of Deedee Osborn Office Visit 09/21/2007 9:00a [facility]surgery Services Deric Carlson, 07266 724.3 Of Deedee Osborn 722.10 Office Visit 09/11/2007 2:15p DO Not Use Daphnie Casas, 85232 724.4 [facility] Kaelyn.Nazario Office Visit 01/15/2007 2:15p DO Not Use Daphnie Casas, 18642 V70.0 [facility] 244.9 724.2 235.2 272.0 V04.81 V06.1 Plan of Care Future Appointment(s):06/19/2019 9:00 am - Krista Peres N.P. at [facility] - Ztrtybtuo24/24/2018 - Krista Peres N.P.Z00.00 Encntr for general adult medical exam w/o abnormal findingsComments:For your routine health maintenance: I encourage you to continue with regular exercise.You could improve your nutrition by boosting your intake of fruit and vegetables and cutting back on sweets and snacks.Your colonoscopy is up to date. You had this in 2011. You will need this repeated in 2021. Your Tetanus immunization is up to date. You received this in 2016. It is good for 10 years unless you have a major injury, then it is good for 5 years. You had a pap smear in 2016. It was normal and your screening for HPV was negative. You will need a repeat pap smear in 2019. You just had a mammogram in March and will need this repeated next March.I have given you a health care proxy and advanced directive forms to fill out and return to our office. These are important for us to have on file so we may knowwhat your wishes are if you are unable to express them yourself.E03.9 Hypothyroidism, unspecifiedComments:Your recent blood work showed your thyroid levels were in normal range. Continue with your current dose of medication.E78.00 Pure hypercholesterolemia, unspecifiedComments:Your recent labs to check your cholesterol looked good. I advise you to follow a low cholesterol diet.R94.5 Abnormal results of liver function studiesComments:To further evaluate your elevate liver enzyme I am referring you to a specialist, Dr Werner.I have ordered an ultrasound of your liver. I will contact you with your results.Referral:Aman Werner MD, AcqbbhzneehdlkmpD64.0 Urinary tract infection, site not specifiedNew Medication:Bactrim DS 800-160 mgComments:For your urinary tract infection:I sent a prescription to the pharmacy for Bactrim DS, take one by mouth twice daily for 7 days.Avoid bladder irritants: coffee, tea, bev, alcohol, and spicy foods.I am sending a specimen for culture, the office will call if you need a different antibiotic. If symptoms persist call the office.
[2018-06-25 19:59] VITALS: BP 149/96
--- NOTE | 2018-06-25 20:30 | UC ---
Lower Extremity/Ankle HPI - HPI Summary HPI Summary: 53 yo female with right great toe pain no injury has been working in sock feet on concrete floor on [employer] for UTI - History of Current Complaint Chief Complaint: UCLowerExtremity Stated Complaint: FOOT TOE PAIN Time Seen by Provider: 06/25/18 20:10 Hx Obtained From: Patient Hx Last Menstrual Period: 06/17/18 Onset/Duration: Sudden Onset, Lasting Hours Severity Initially: Mild Severity Currently: Moderate Pain Intensity: 7 Pain Scale Used: 0-10 Numeric Aggravating Factor(s): Standing, Ambulation Alleviating Factor(s): Rest Able to Bear Weight: Yes - Allergies/Home Medications Allergies/Adverse Reactions: Allergies Allergy/AdvReac Type Severity Reaction Status Date / Time No Known Allergies Allergy Verified 06/25/18 19:50 PMH/Surg Hx/FS Hx/Imm Hx Previously Healthy: Yes - Surgical History Surgical History: Yes Surgery Procedure, Year, and Place: herniated disc-back surgery, c section - Social History Alcohol Use: None Substance Use Type: None Smoking Status (MU): Never Smoked Tobacco Have You Smoked in the Last Year: No Review of Systems Constitutional: Negative Skin: Negative Eyes: Negative ENT: Negative Respiratory: Negative Cardiovascular: Negative Gastrointestinal: Negative Genitourinary: Negative Motor: Negative Neurovascular: Negative Musculoskeletal: Arthralgia Neurological: Negative Psychological: Negative Is Patient Immunocompromised?: No All Other Systems Reviewed And Are Negative: Yes Physical Exam Triage Information Reviewed: Yes Appearance: Well-Appearing, No Pain Distress, Well-Nourished Vital Signs: Initial Vital Signs Temp 98 F 06/25/18 19:52 Pulse 75 06/25/18 19:52 Resp 16 06/25/18 19:52 BP 149/96 06/25/18 19:52 Pulse Ox 100 06/25/18 19:52 Eyes: Positive: Conjunctiva Clear ENT: Positive: Hearing grossly normal. Negative: Nasal congestion, Nasal drainage, Trismus, Muffled voice, Hoarse voice Neck: Positive: Supple, Nontender Respiratory: Positive: Lungs clear, Normal breath sounds, No respiratory distress, No accessory muscle use Cardiovascular: Positive: RRR, No Murmur Musculoskeletal: Positive: ROM Limited @ - right great toe, Edema @ - plantar aspect 1st MCP, Other: - antalgic gait Psychological Exam: Normal Skin Exam: Normal Diagnostics - Radiology No standard instances Xray Interpretation: No Acute Changes Radiology Interpretation Completed By: ED Physician Lower Extremity Course/Dx - Differential Dx/Diagnosis Provider Diagnoses: right great toe pain of uncertain cause Discharge - Sign-Out/Discharge Documenting (check all that apply): Patient Departure - Discharge Plan Condition: Stable Disposition: HOME Prescriptions: Cephalexin CAP* [Keflex CAP*] 500 mg PO BID #4 cap Patient Education Materials: Swollen Joint (ED) Referrals: Mitali Velasco MD [Medical Doctor] - As Soon As Possible [facility] [Outside] - As Soon As Possible Additional Instructions: stop cipro take keflex rest elevate advil 3 pills 4x day as needed I am unsure of the cause of your great toe pain doubt gout but that is a possibility ? overuse injury vs metarsalgia vs seamoid bone inflamation vs tenodintitis vs other - Billing Disposition and Condition Condition: STABLE Disposition: Home
[2018-06-25] MEDS ORDERED: Cephalexin CAP* 500 MG PO ONE (21:03)
[2018-06-25] MEDS ORDERED: Ibuprofen TAB* 600 MG PO ONE (21:04)
--- NOTE | 2018-06-26 07:39 | RAD ---
HISTORY: pain, right first great toe, and region of sesamoid COMPARISONS: None VIEWS: 3, Frontal, lateral, and oblique views of the first digit of the right foot FINDINGS: BONE DENSITY: Normal. BONES: There is no displaced fracture. JOINTS: There is no arthropathy. ALIGNMENT: There is no dislocation. SOFT TISSUES: Unremarkable. OTHER FINDINGS: None. IMPRESSION: NO ACUTE OSSEOUS INJURY. IF SYMPTOMS PERSIST, RECOMMEND REPEAT IMAGING. R0
== END 2018-06-25 21:28 | disposition home or self-care (01) ==
LOC: UCEAST 18:51
DX: M79.674 Pain in right toe(s) (principal)
CPT/HCPCS: 99213; A9270-GY; G0463

== ENCOUNTER 2019-05-04 14:03 | Emergency (ER) | payer OTHER ==
--- NOTE | 2019-05-04 14:12 | UC ---
Palpitation/Dysrhythmia HP - HPI Summary HPI Summary: 54 yo with history of primary biliary cholangitis, with a sense of irregular heart rhythm beginning this morning. She has had similar experience in the past , with past stress testing with Dr. Quintanilla, several years ago. Has been aware of this off and on all day. No associated chest pain, sweating, dizzines sor pre-syncopy. Drining more caffeinated coffee recently (6 cups per day), played tennis in the heat yesterday, hx of hypothyroidism. Has been losing weight with intent since dx of PBC, being treated by Dr. Mendoza at [facility]. - History of Current Complaint Stated Complaint: HEART BEATING IRREGUAR Time Seen by Provider: 05/04/19 14:05 Hx Obtained From: Patient Hx Last Menstrual Period: 06/17/18 Onset/Duration: Sudden Onset, Lasting Hours - about 6 Timing: Intermittent Episodes Lasting: Severity Initially: Mild Severity Currently: Mild Character: Irregular Aggravating Factor(s): Caffeine Alleviating Factor(s): Exertion - less aware of this while mowing the lawn Associated Signs & Symptoms: Positive: Negative - Risk Factors Cardiac: Negative Pulmonary Embolism: Negative Atrial Fibrillation: Negative - Allergy/Home Medications Allergies/Adverse Reactions: Allergies Allergy/AdvReac Type Severity Reaction Status Date / Time ciprofloxacin AdvReac Intermediate Joint Pain Uncoded 05/04/19 14:16 Home Medications: Home Medications Levothyroxine TAB* [Synthroid 125 MCG TAB*] 125 mcg PO DAILY 05/04/19 [History Confirmed 05/04/19] Ursodiol CAP* [Actigall CAP 300 MG*] 300 mg PO TID 05/04/19 [History Confirmed 05/04/19] PMH/Surg Hx/FS Hx/Imm Hx Previously Healthy: Yes Endocrine History: Hypothyroidism GI/ History: Other - primary biliary cholangitis. - Surgical History Surgical History: Yes Surgery Procedure, Year, and Place: herniated disc-back surgery, c section - Family History Known Family History: Positive: Cardiac Disease - father [place] age 73, Other - mother of lung cancer. - Social History Occupation: Employed Full-time Lives: With Family Alcohol Use: Rare Substance Use Type: None Smoking Status (MU): Never Smoked Tobacco Have You Smoked in the Last Year: No Review of Systems All Other Systems Reviewed And Are Negative: Yes Skin: Positive: Negative Eyes: Positive: Other - hx of ocular migraine. ENT: Positive: Negative Respiratory: Negative: Shortness Of Breath, Cough Cardiovascular: Positive: Palpitations. Negative: Chest Pain Gastrointestinal: Negative: Vomiting, Nausea Genitourinary: Positive: Negative Motor: Positive: Negative Neurovascular: Positive: Negative Musculoskeletal: Positive: Negative Neurological: Positive: Negative Psychological: Positive: Other - aware of feeling worried and a bit stressed, tearful. Had additional mammo views this week, made her feel worried. Physical Exam Triage Information Reviewed: Yes Appearance: Well-Appearing, No Pain Distress Eyes: Positive: Conjunctiva Clear ENT: Positive: Pharynx normal, TMs normal Neck: Positive: Supple, Nontender, No Lymphadenopathy Respiratory: Positive: Lungs clear, Normal breath sounds Cardiovascular Exam: Other - regularly irregular. Cardiovascular: Positive: No Murmur, Pulses Normal Abdomen Description: Positive: Nontender, No Organomegaly, Soft Musculoskeletal Exam: Normal Neurological: Positive: Alert, Muscle Tone Normal Psychological Exam: Other - mildly tearful Skin Exam: Normal Diagnostics - EKG Cardiac Rate: Other Rate - first degree av block Cardiac Rhythm: Sinus: Normal Ectopy: PACs ST Segment: Normal Palpitations Course/Dx - Course Course Of Treatment: sinus arrhythmia. Labs drawn, decrease caffeine. follow up with Irene Peres for further work up. - Differential Dx/Diagnosis Differential Diagnosis/HQI/PQRI: Coronary Artery Disease, Hypokalemia Provider Diagnosis: Premature atrial complex Discharge - Sign-Out/Discharge Documenting (check all that apply): Patient Departure All imaging exams completed and their final reports reviewed: No Studies - Discharge Plan Condition: Stable Disposition: HOME Patient Education Materials: Premature Atrial Contractions (ED) Referrals: Krista Peres NP [Primary Care Provider] - Additional Instructions: Lab work has been done in order to look for possible metabolic changes which could promote a heart arrhytmia, including electrolytes and thyroid check. Please see Irene Soto within 2 or 3 days for re-assessment, and decision about whether re-assessment by Dr. Quintanilla is needed. Please decrease caffeine. - Billing Disposition and Condition Condition: STABLE Disposition: Home
[2019-05-04 14:15] VITALS: BP 165/85
[2019-05-05 11:00] LABS: ABS Eosinophils 0.1 10^3/ul (0-0.6); ABS Lymphocytes 2.3 10^3/ul (1.0-4.8); ABS Monocytes 0.7 10^3/ul (0-0.8); ABS Neutrophils 2.7 10^3/ul (1.5-7.7); Eosinophil % 1.3 %; Hematocrit 36 % (35-47); Hemoglobin 11.9 g/dL (12.0-16.0); Lymphocyte % 39.4 %; Mean Corpuscular HGB Conc 33 g/dL (31-36); Mean Corpuscular Hemoglobin 26 pg (27-31); Mean Corpuscular Volume 78 fL (80-97); Mean Platelet Volume 8.9 fL (7.4-10.4); Nucleated Red Blood Cells % 0.3; Platelet Count 283 10^3/uL (150-450); Red Blood Count 4.64 10^6 /uL (3.70-4.87); Red Cell Distribution Width 18 % (10-15); White Blood Count 5.8 10^3/uL (3.5-10.8)
[2019-05-05 11:28] LABS: TSH (Thyroid Stimulating Horm) 0.99 mcIU/mL (0.34-5.60)
[2019-05-05 11:40] LABS: Albumin 4.3 g/dL (3.2-5.2); Albumin/Globulin Ratio 1.5 (1-3); BUN/Creatinine Ratio 17.7 (8-20); Calcium 9.8 mg/dL (8.6-10.3); EGFR African American 91.4 (>60); EGFR Non-African American 75.6 (>60); Globulin 2.9 g/dL (2-4); Potassium 3.7 mmol/L (3.5-5.0); Total Bilirubin 0.3 mg/dL (0.2-1.0); Total Protein 7.2 g/dL (6.4-8.9)
== END 2019-05-04 15:33 | disposition home or self-care (01) ==
LOC: UCEAST 14:03
DX: I49.1 Atrial premature depolarization (principal); E03.9 Hypothyroidism, unspecified
CPT/HCPCS: 36415; 80053; 84443; 85025; 99211; G0463